=== PATIENT | female | born 1950 | race Caucasian/White ===

== ENCOUNTER 2018-04-20 09:19 | Emergency (ER) | payer MEDICARE ==
[~2018-04-20] VITALS: Ht 162.6 cm; Wt 69.3 kg
[~2018-04-20 09:19] MED LIST: ALPR-138 PO; CLIN1CAP5 PO; ESTR1TAB68 PO; LORT5TAB PO; ZYRT10TA12 PO
[2018-04-20 09:26] VITALS: BP 193/80; PULSE 86; RESP 16; TEMP 98.5; O2SAT 98
[2018-04-20] MEDS ORDERED: CETI10CH CHEW (09:43)
[2018-04-20] MEDS ORDERED: ESTR1TAB68 (09:43)
[2018-04-20] MEDS ORDERED: TETANUS/DIPHTHERIA TOXOID ADULT 0.5 ML VIAL IM ONE (09:45)
[2018-04-20] MEDS ORDERED: LIDOCAINE HCL 1% 50 ML VIAL INFIL ONE (09:45)
[2018-04-20] MEDS ORDERED: LIDOCAINE HCL 1% PF 30 ML VIAL ONE (09:51)
--- NOTE | 2018-04-20 10:04 | PD ---
HPI Chief Complaint: Fall Time Seen by Provider: 09:39 Travel History International Travel<30 days: No Contact w/Intl Traveler<30days: No Traveled to known affect area: No History of Present Illness HPI 67-year-old female presents emergency department evaluation of a laceration to the right forearm that occurred today. Says that she tripped over a wire on a trailer and fell landing on the right forearm, right knee, and bumped her head. She denies loss of consciousness or blurred vision. She does not take any blood thinners. Says that her pain is focused around the laceration of her forearm which is mild in severity without radiation of pain. Says she was able to control the bleeding prior to arrival. Denies any numbness or tingling the extremities. She denies neck or back pain. She denies any pain. says that she takes hormone replacement therapy and Zyrtec daily at home. Says she takes aspirin as needed for inflammation. She has a history of lymphedema bilateral lower extremities. She denies any other complaints today. PFSH Past Medical History Medical History: Denies Significant Hx Cancer: No Diabetes: No Diminished Hearing: No Hepatitis: No Hiatal Hernia: No Thyroid Disease: No Tetanus Vaccination: > 5 Years Influenza Vaccination: No ?: Not Menopausal: Yes Past Surgical History Abdominal Surgery: No Cardiac Surgery: No Ear Surgery: No Endocrine Surgery: No Eye Surgery: No Genitourinary Surgery: No Gynecologic Surgery: No Neurologic Surgery: No Oral Surgery: Yes (WISDOM TEETH EXT) Pacemaker: No Thoracic Surgery: No Other Surgery: Yes (TMJ surgery, face lift, Breast Aug) Social History Alcohol Use: Yes (occ) Tobacco Use: No Substance Use: No Allergies-Medications (Allergen,Severity, Reaction): Coded Allergies: corn (Unverified Allergy, Severe, BLAOTING DISTENSION, DIARRHEA, 04/20/18) Sulfa (Sulfonamide Antibiotics) (Unverified Allergy, Intermediate, Rash, ) cefuroxime (Unverified Allergy, Intermediate, Rash, 04/20/18) cephalexin (Unverified Allergy, Intermediate, Rash, 04/20/18) penicillin G (Unverified Allergy, Intermediate, Rash, 04/20/18) Reported Meds & Prescriptions Reported Meds & Active Scripts Active Clindamycin (Clindamycin HCl) 300 Mg Cap 300 Mg PO TID 7 Days Reported Cetirizine (Cetirizine HCl) 10 Mg Chew 10 Mg CHEW DAILY Activella (Estradiol-Norethindrone) 1-0.5 Mg Tab Review of Systems Except as stated in HPI: all other systems reviewed are Neg Physical Exam Narrative GENERAL: Well-developed well-nourished in no apparent distress SKIN: Focused skin assessment warm/dry. Right medial distal forearm-1-1/2 cm laceration not grossly contaminated. Bleeding controlled. Neurovascularly intact HEAD: Atraumatic. Normocephalic. EYES: Pupils equal and round. No scleral icterus. No injection or drainage. EOMI ENT: No nasal bleeding or discharge. Mucous membranes pink and moist. NECK: Trachea midline. No JVD. No midline tenderness CARDIOVASCULAR: Regular rate and rhythm. No murmur appreciated. RESPIRATORY: No accessory muscle use. Clear to auscultation. Breath sounds equal bilaterally. GASTROINTESTINAL: Abdomen soft, non-tender, nondistended. Hepatic and splenic margins not palpable. MUSCULOSKELETAL: No obvious deformities. No clubbing. No cyanosis. No edema. Right upper extremity-laceration present on forearm, full range of motion of fingers wrist and elbow. No tenderness palpation. No ecchymosis or crepitus. Neurovascularly intact. Right lower extremity-no areas of ecchymosis or abrasions. Skin intact. No tenderness palpation. Full range of motion. Neuro vascular intact. NEUROLOGICAL: Awake and alert. No obvious cranial nerve deficits. Motor grossly within normal limits. Normal speech. PSYCHIATRIC: Appropriate mood and affect; insight and judgment normal. Data Data Last Documented VS Vital Signs Date Time Temp Pulse Resp B/P (MAP) Pulse Ox O2 Delivery O2 Flow Rate FiO2 04/20/18 09:26 98.5 86 16 193/80 (117) 98 Orders Orders Lidocaine 1% Inj (50 Ml) (Xylocaine 1% I (04/20/18 09:45) Tetanus/Diphtheria Tox Adult (Tetanus/Di (04/20/18 09:45) Lidocaine Pf 1% Inj (Xylocaine-Mpf 1% In (04/20/18 09:51) Ed Discharge Order (04/20/18 10:26) Wound Care (04/20/18 10:26) MDM Medical Decision Making Medical Screen Exam Complete: Yes Emergency Medical Condition: Yes Differential Diagnosis Right forearm laceration, avulsion, abrasion, fracture Narrative Course 67-year-old female presents emergency department evaluation of a laceration to the right forearm that occurred today. Says that she tripped over a wire on a trailer and fell landing on the right forearm, right knee, and bumped her head. She denies loss of consciousness or blurred vision. She does not take any blood thinners. Says that her pain is focused around the laceration of her forearm which is mild in severity without radiation of pain. Says she was able to control the bleeding prior to arrival. Denies any numbness or tingling the extremities. She denies neck or back pain. She denies any pain. says that she takes hormone replacement therapy and Zyrtec daily at home. Says she takes aspirin as needed for inflammation. She has a history of lymphedema bilateral lower extremities. She denies any other complaints today. Vital signs are stable. His exam findings consistent with laceration to forearm. There are no other obvious injuries present. She has no other complaints today. We discussed risk versus benefit of imaging studies today to include CT head and neck. I do not believe that is absolutely necessary patient received these images and patient would like to defer for now. Advised on what to look out for regarding head injury. She states understanding will comply. Patient is in the process of moving to [place] and I am unsure of her follow- up status. Will prescribe clindamycin for antibiotics in case her wound becomes infected although I have low suspicion this will occur as patient is relatively healthy. She was given instruction regarding wound care. Return for worsening or persistent symptoms or Procedures Procedure Narrative LACERATION LOCATION: Right forearm LENGTH: 1-1/2 cm NUMBER OF STITCHES/DOYLE: 7 REPAIR: The area of the laceration was prepped with Betadine and sterilely draped. The laceration was infiltrated with 1% lidocaine without epinephrine. The wound was copiously irrigated and explored without evidence of foreign body, tendon injury or neurovascular injury. The wound was closed using 5-0 Prolene. This was a single layer repair. A sterile dressing was applied. The patient was advised to keep the dressing clean and dry. Patient tolerated the procedure well. Diagnosis Primary Impression: Laceration of forearm Qualified Codes: S51.811A - Laceration without foreign body of right forearm, initial encounter Referrals: Primary Care Physician Additional Instructions: DO NOT TAKE CLINDAMYCIN unless your wound appears to be red, swollen, or become more painful in the next couple of days. Follow up with your primary care physician within 2-3 days if possible. Keep area clean and dry for 24 hours. After 24 hours, you may bathe as normal but dry the area thoroughly. You may use [id number] triple antibiotic ointments for your injury daily. Change dressings daily. If bleeding starts, apply pressure and elevate the area. If you developed increased redness, swelling, or pain return to the emergency department as this could be a sign of infection. Suture removal in 7-10 days Return to the emergency department if you experience severe headache, personality changes, blurred vision, nausea, vomiting as a result of her head trauma. Scripts Clindamycin (Clindamycin) 300 Mg Cap 300 MG PO TID for Infection for 7 Days, CAP 0 Refills Prov: Emelina Bonilla MD 04/20/18 Disposition: 01 DISCHARGE HOME Condition: Stable Elisabeth Barnard Apr 20, 2018 10:04
[2018-04-20] MEDS ORDERED: CLIN300C5 PO (10:25)
== END 2018-04-20 11:05 | disposition home or self-care (01) ==
LOC: PHED 09:19
DX: S51.811A Laceration without foreign body of right forearm, initial encounter (principal); W01.0XXA Fall on same level from slipping, tripping and stumbling without subsequent striking against object, initial encounter; I89.0 Lymphedema, not elsewhere classified; Z79.82 Long term (current) use of aspirin; Z23 Encounter for immunization
CPT/HCPCS: 12001; 90471; 90714